=== PATIENT | male | born 2000 | race African-American/Black ===

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

== ENCOUNTER → 2022-05-26 | Outpatient (CLI) | payer OTHER ==
[2022-05-26 16:49] LABS: ALT 39 U/L (10-49); AST 27 U/L (14-35); African American GFR (CKD) 154.6 (60.0-200.0); Albumin 4.6 g/dL (3.8-4.9); Albumin/Globulin Ratio 1.67 (1.60-3.17); Alkaline Phosphatase 67 U/L (41-126); BUN/Creat Ratio 15.44 Ratio (12.00-20.00); Blood Urea Nitrogen 11.5 mg/dL (9.0-27.0); Calcium 9.7 mg/dL (8.7-10.3); Carbon Dioxide 23.9 mmol/L (20.0-27.5); Chloride 101 mmol/L (96-109); Chol/HDL Ratio 4.11 Ratio; Globulin 2.8 g/dL (1.6-3.3); Glucose 86 mg/dL (70-110); LDL Cholesterol,Calculated 134.3 mg/dL (0.0-131.0); Non-African American GFR(CKD) 133.4 (60.0-200.0); Potassium 4.2 mmol/L (3.5-5.5); Sodium 138 mmol/L (135-145); Total Protein 7.4 g/dL (6.2-8.2)
[2022-05-26 16:50] LABS: Basophils # (A) 0.04 X 10*3/uL (0.00-0.10); Basophils % (A) 0.6 %; Eosinophils # (A) 0.23 X 10*3/uL (0.04-0.35); Eosinophils % (A) 3.3 %; HCT 43.9 % (39.6-50.0); HGB 14.7 g/dL (13.0-17.0); Immature Grans, Automated 0.3 %; Lymphocytes # (A) 2.25 X 10*3/uL (0.90-5.00); Lymphocytes % (A) 32.5 %; MCH 28.8 pg (27.0-32.0); MCHC 33.5 g/dL (32.0-37.0); MCV 86.1 fL (80.0-97.0); Monocytes # (A) 0.52 X 10*3/uL (0.20-1.00); Monocytes % (A) 7.5 %; NRBC Per 100 WBC 0 /100 WBCS (0.0-0.0); Neutrophils # (A) 3.87 X 10*3/uL (1.80-7.70); Neutrophils % (A) 55.8 %; Platelet Count 269 X 10*3/uL (140-440); WBC 6.93 X 10*3/uL (4.50-10.00)
== END | disposition home or self-care (01) ==
LOC: LABWHC1 11:06
PROVIDERS: ATTEND Registered Nurse
DX: Z79.899 Other long term (current) drug therapy (principal)
CPT/HCPCS: 36415; 80053; 80061; 83036; 84439; 84443; 85025

== ENCOUNTER 2023-08-09 10:16 | Emergency (ER) | payer OTHER ==
[2023-08-09 10:34] VITALS: RESP 18; TEMP 98
--- NOTE | 2023-08-09 12:08 | ED ---
Psych HPI - General Chief Complaint: Psychiatric Symptoms Stated Complaint: Mental Health Time Seen by Provider: 08/09/23 10:19 Source: patient, RN notes reviewed Mode of arrival: ambulatory Limitations: no limitations - History of Present Illness Initial Comments: 22-year-old male presents emergency department with family for psychiatric evaluation. Patient got upset and ran away down the road. Patient denies being suicidal homicidal denies any drug use no alcohol use. - Related Data Allergies Allergy/AdvReac Type Severity Reaction Status Date / Time cetirizine [From Zyrtec] Allergy Unknown Verified 08/09/23 10:22 diphenhydramine Allergy Unknown Verified 08/09/23 10:22 [From Benadryl] Penicillins Allergy Unknown Verified 08/09/23 10:22 Review of Systems ROS Statement: Those systems with pertinent positive or pertinent negative responses have been documented in the HPI. ROS Other: All systems not noted in ROS Statement are negative. 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 Absent: scleral icterus, conjunctival injection, periorbital swelling ENT exam: Present: normal exam, mucous membranes moist Neck exam: Present: normal inspection, full ROM. Absent: tenderness, meningismus, lymphadenopathy Respiratory exam: Present: normal lung sounds bilaterally. Absent: respiratory distress, wheezes, rales, rhonchi, stridor Cardiovascular Exam: Present: regular rate, normal rhythm, normal heart sounds. Absent: systolic murmur, diastolic murmur, rubs, gallop, clicks GI/Abdominal exam: Present: soft, normal bowel sounds. Absent: distended, tenderness, guarding, rebound, rigid Neurological exam: Present: alert, oriented X3 Psychiatric exam: Present: normal affect, normal mood Course Vital Signs 08/09/23 08/09/23 10:19 12:25 Temperature 98 F Pulse Rate 104 H 84 Respiratory 18 18 Rate Blood Pressure 113/81 118/64 O2 Sat by Pulse 98 98 Oximetry Medical Decision Making - Medical Decision Making Was pt. sent in by a medical professional or institution (MARIUM Pritchard, PROFESSOR OF MARKETING, urgent care, hospital, or correction...) When possible be specific @ -No Did you speak to anyone other than the patient for history (EMS, parent, family, police, friend...)? What history was obtained from this source @ -Feeling fine past medical history Did you review nursing and triage notes (agree or disagree)? Why? @ -I reviewed and agree with nursing and triage notes Were old charts reviewed (outside hosp., previous admission, EMS record, old EKG, old radiological studies, urgent care reports/EKG's, correction records)? Report findings @ -No old charts were reviewed Differential Diagnosis (chest pain, altered mental status, abdominal pain women, abdominal pain men, vaginal bleeding, weakness, fever, dyspnea, syncope, headache, dizziness, GI bleed, back pain, seizure, CVA, palpatations, mental health, musculoskeletal)? @ -Differential Mental Health Depression, anxiety, bipolar, psychosis, schizophrenia, borderline personality, situational depression, adjustment disorder, behavioral disorder, brain tumor, malingering, substance abuse, encephalopathy, medication reaction, dementia, hypothyroidism, degenerative neurologic disorder, lupus.... This is not meant to be all-inclusive listle EKG interpreted by me (3pts min.). @ -None X-rays interpreted by me (1pt min.). @ -None done CT interpreted by me (1pt min.). @ -None done U/S interpreted by me (1pt. min.). @ -None done What testing was considered but not performed or refused? (CT, X-rays, U/S, l abs)? Why? @ -None What meds were considered but not given or refused? Why? @ -None Did you discuss the management of the patient with other professionals (professionals i.e. MARIUM Pritchard, PROFESSOR OF MARKETING, lab, RT, psych nurse, clinical social work therapist, staff nuclear medicine technologist, teacher, building drafting officer, case resource manager)? Give summary @ -EPS evaluated the patient recommends patient be discharged CT plan family agrees. Was smoking cessation discussed for >3mins.? @ -No Was critical care preformed (if so, how long)? @ -No Were there social determinants of health that impacted care today? How? (Homelessness, low income, unemployed, alcoholism, drug addiction, transportation, low edu. Level, literacy, decrease access to med. care, long-term, rehab)? @ -No Was there de-escalation of care discussed even if they declined (Discuss DNR or withdrawal of care, Hospice)? DNR status @ -No What co-morbidities impacted this encounter? (DM, HTN, Smoking, COPD, CAD, Cancer, CVA, ARF, Chemo, Hep., AIDS, mental health diagnosis, sleep apnea, morbid obesity)? @ -None Was patient admitted / discharged? Hospital course, mention meds given and route, prescriptions, significant lab abnormalities, going to OR and other pertinent info. @ -Discharge patient was evaluated by EPS patient is not suicidal homicidal is safe for discharge a safety plan Undiagnosed new problem with uncertain prognosis? @ -No Drug Therapy requiring intensive monitoring for toxicity (Heparin, Nitro, Ins ulin, Cardizem)? @ -No Were any procedures done? @ -No Diagnosis/symptom? @ -Adjustment reaction Acute, or Chronic, or Acute on Chronic? @ -Acute Uncomplicated (without systemic symptoms) or Complicated (systemic symptoms)? @ -Uncomplicated Side effects of treatment? @ -No Exacerbation, Progression, or Severe Exacerbation? @ -No Poses a threat to life or bodily function? How? (Chest pain, USA, ME, pneumonia, PE, COPD, DKA, ARF, appy, cholecystitis, CVA, Diverticulitis, Homicidal, Suicidal, threat to staff... and all critical care pts) @ -No - Lab Data Lab Results 08/09/23 Range/Units 11:26 Urine Opiates Screen Not Detected (NotDetected) Ur Oxycodone Screen Not Detected (NotDetected) Urine Methadone Screen Not Detected (NotDetected) Ur Propoxyphene Screen Not Detected (NotDetected) Ur Barbiturates Screen Not Detected (NotDetected) U Tricyclic Antidepress Not Detected (NotDetected) Ur Phencyclidine Scrn Not Detected (NotDetected) Ur Amphetamines Screen Not Detected (NotDetected) U Methamphetamines Scrn Not Detected (NotDetected) U Benzodiazepines Scrn Not Detected (NotDetected) Urine Cocaine Screen Not Detected (NotDetected) U Marijuana (THC) Screen Not Detected (NotDetected) Disposition Clinical Impression: Adjustment reaction Disposition: HOME SELF-CARE Condition: Stable Additional Instructions: Please return to the Emergency Department if symptoms worsen or any other concerns. Is patient prescribed a controlled substance at d/c from ED?: No Referrals: Gallo Greco MD [Primary Care Provider] - 1-2 days Time of Disposition: 12:08
[2023-08-09 12:22] LABS: Amphetamine Screen,Urine Not Detected (NotDetected); Barbiturate Screen,Urine Not Detected (NotDetected); Benzodiazepines Screen,Urine Not Detected (NotDetected); Cocaine Screen,Urine Not Detected (NotDetected); Methadone Screen, Urine Not Detected (NotDetected); Opiate Screen,Urine Not Detected (NotDetected); Oxycodone Screen, Urine Not Detected (NotDetected); Phencyclidine Screen,Urine Not Detected (NotDetected); Tricyclic Antidepressant,Urine Not Detected (NotDetected); Urn Cannabinoid Scrn Not Detected (NotDetected)
[2023-08-09 12:45] VITALS: BP 118/64; PULSE 84
== END 2023-08-09 12:38 | disposition home or self-care (01) ==
LOC: EEVIPCON 10:16 → EC 10:16
DX: F43.20 Adjustment disorder, unspecified (principal); J45.909 Unspecified asthma, uncomplicated; Z88.0 Allergy status to penicillin; Z88.8 Allergy status to other drugs, medicaments and biological substances
CPT/HCPCS: 80306; 82075; 99285

== ENCOUNTER 2023-09-03 15:17 | Emergency (ER) | payer OTHER ==
[2023-09-03 15:30] VITALS: BP 114/85; PULSE 115; RESP 20; TEMP 97
--- NOTE | 2023-09-03 16:22 | ED ---
General Adult HPI - General Chief complaint: Psychiatric Symptoms Stated complaint: Mental Health Time Seen by Provider: 09/03/23 15:32 Source: patient, family, police, RN notes reviewed Mode of arrival: ambulatory Limitations: no limitations - History of Present Illness Initial comments: Patient is a pleasant 22-year-old male presenting to the emergency department after found wandering by the police. Mother is present. Patient was upset and when out wandering. Patient was in shorts and T-shirt. Patient states he does feel better at this time and is no longer upset. Patient is comfortable to go home with mother and be discharged. Patient has been taking his medications. Patient is acting normally. No suicidal or homicidal thoughts. - Related Data Allergies Allergy/AdvReac Type Severity Reaction Status Date / Time cetirizine [From Zyrtec] Allergy Unknown Verified 08/09/23 10:22 diphenhydramine Allergy Unknown Verified 08/09/23 10:22 [From Benadryl] Penicillins Allergy Unknown Verified 08/09/23 10:22 Review of Systems ROS Statement: Those systems with pertinent positive or pertinent negative responses have been documented in the HPI. ROS Other: All systems not noted in ROS Statement are negative. Constitutional: Denies: fever Eyes: Denies: eye pain ENT: Denies: ear pain Respiratory: Denies: cough Cardiovascular: Denies: chest pain Endocrine: Denies: fatigue Gastrointestinal: Denies: abdominal pain Genitourinary: Denies: dysuria Past Medical History Past Medical History: Asthma, Seizure Disorder Additional Past Medical History / Comment(s): cva inutero, History of Any Multi-Drug Resistant Organisms: None Reported Additional Past Surgical History / Comment(s): brain surgery to relieve seizures, L ankle Past Psychological History: ADD/ADHD Smoking Status: Never smoker Past Alcohol Use History: None Reported Past Drug Use History: None Reported General Exam Limitations: no limitations General appearance: alert, in no apparent distress Head exam: Present: normocephalic Eye exam: Present: normal appearance Neck exam: Present: normal inspection Respiratory exam: Present: normal lung sounds bilaterally Cardiovascular Exam: Present: regular rate, normal rhythm GI/Abdominal exam: Present: soft. Absent: tenderness Extremities exam: Present: normal inspection Neurological exam: Present: alert Psychiatric exam: Present: normal affect, normal mood Skin exam: Present: normal color Course Vital Signs 09/03/23 15:27 Temperature 97 F L Pulse Rate 115 H Respiratory 20 Rate Blood Pressure 114/85 O2 Sat by Pulse 99 Oximetry Medical Decision Making - Medical Decision Making Was pt. sent in by a medical professional or institution ([facility] Pritchard, FINGERNAIL TECHNICIAN, urgent care, hospital, or fci...) When possible be specific @ -Patient was brought in by police officers Did you speak to anyone other than the patient for history (EMS, parent, family, police, friend...)? What history was obtained from this source @ -Mother helps provide history including that patient was upset and wandering. Mother does not have other concerns. Did you review nursing and triage notes (agree or disagree)? Why? @ -I reviewed and agree with nursing and triage notes Were old charts reviewed (outside hosp., previous admission, EMS record, old EKG, old radiological studies, urgent care reports/EKG's, fci records)? Report findings @ -No old charts were reviewed Differential Diagnosis (chest pain, altered mental status, abdominal pain women, abdominal pain men, vaginal bleeding, weakness, fever, dyspnea, syncope, headache, dizziness, GI bleed, back pain, seizure, CVA, palpatations, mental health, musculoskeletal)? @ -Differential Mental Health Depression, anxiety, bipolar, psychosis, schizophrenia, borderline personality, situational depression, adjustment disorder, behavioral disorder, brain tumor, malingering, substance abuse, encephalopathy, medication reaction, dementia, hypothyroidism, degenerative neurologic disorder, lupus.... This is not meant to be all-inclusive list EKG interpreted by me (3pts min.). @ -As above X-rays interpreted by me (1pt min.). @ -None done CT interpreted by me (1pt min.). @ -None done U/S interpreted by me (1pt. min.). @ -None done What testing was considered but not performed or refused? (CT, X-rays, U/S, labs)? Why? @ -None What meds were considered but not given or refused? Why? @ -None Did you discuss the management of the patient with other professionals (professionals i.e. MARIUM Pritchard, FINGERNAIL TECHNICIAN, lab, RT, psych nurse, social service technician, independent driver, teacher, aviation ordnance officer, piano case maker)? Give summary @ -No Was smoking cessation discussed for >3mins.? @ -No Was critical care preformed (if so, how long)? @ -No Were there social determinants of health that impacted care today? How? (Homelessness, low income, unemployed, alcoholism, drug addiction, tr ansportation, low edu. Level, literacy, decrease access to med. care, usp, rehab)? @ -No Was there de-escalation of care discussed even if they declined (Discuss DNR or withdrawal of care, Hospice)? DNR status @ -No What co-morbidities impacted this encounter? (DM, HTN, Smoking, COPD, CAD, Cancer, CVA, ARF, Chemo, Hep., AIDS, mental health diagnosis, sleep apnea, morbid obesity)? @ -None Was patient admitted / discharged? Hospital course, mention meds given and route, prescriptions, significant lab abnormalities, going to OR and other pertinent info. @ -Mother and patient are both comfortable with discharge home. No further concerns. Patient does not have any suicidal thoughts and is able to take care of himself with mother's assistance. Undiagnosed new problem with uncertain prognosis? @ -No Drug Therapy requiring intensive monitoring for toxicity (Heparin, Nitro, Insulin, Cardizem)? @ -No Were any procedures done? @ -No Diagnosis/symptom? @ -Adjustment disorder Acute, or Chronic, or Acute on Chronic? @ -Acute on chronic Uncomplicated (without systemic symptoms) or Complicated (systemic symptoms)? @ -default Side effects of treatment? @ -No Exacerbation, Progression, or Severe Exacerbation? @ -No Poses a threat to life or bodily function? How? (Chest pain, [place], [place], pneumonia, PE, COPD, DKA, ARF, appy, cholecystitis, CVA, Diverticulitis, Homicidal, Suicidal, threat to staff... and all critical care pts) @ -No Disposition Clinical Impression: Adjustment reaction Disposition: HOME SELF-CARE Condition: Stable Instructions (If sedation given, give patient instructions): Mood Disorders (ED) Additional Instructions: Discharge to mother. Please follow-up with your primary care physician and psychiatrist in the next couple days for recheck. Return for thoughts of self- harm, worsening symptoms or other concerns. Is patient prescribed a controlled substance at d/c from ED?: No Referrals: Gallo Greco MD [Primary Care Provider] - 1-2 days Time of Disposition: 16:20
== END 2023-09-03 17:01 | disposition home or self-care (01) ==
LOC: EC 15:17
DX: F43.20 Adjustment disorder, unspecified (principal); J45.909 Unspecified asthma, uncomplicated; Z88.0 Allergy status to penicillin; Z88.8 Allergy status to other drugs, medicaments and biological substances; Z86.73 Personal history of transient ischemic attack (TIA), and cerebral infarction without residual deficits
CPT/HCPCS: 82075; 99284

== ENCOUNTER 2023-12-24 18:23 | Emergency (ER) | payer OTHER ==
--- NOTE | 2023-12-24 18:31 | ED ---
General Adult HPI <Omer Laws - Last Filed: 12/24/23 18:32> <Kurtis Bynum - Last Filed: 12/24/23 19:30> - General Stated complaint: Mental Health Time Seen by Provider: 12/24/23 18:31 - History of Present Illness Initial comments: 23-year-old male presenting to the ED with complaints of mental health problem. Per mother, patient has not been taking his medications lately. Due to this has been acting more abnormal. States police found him walking up and down the road. Brought the patient. Further evaluation. (Omer Laws) 23-year-old male presenting for evaluation. Patient and mother state that he has not been wanting to take his medication due to their current situation where they are living. They are currently homeless. Patient has no physical or mental complaints at the time my evaluation. He agrees to take his medication and the mother and patient's state they can stay with the patient's grandmother who is very close to the hospital. No physical complaints, no suicidal or homic idal ideation. Patient is just stressed because they are homeless. (Kurtis Bynum) - Related Data Home Medications Medication Instructions Recorded Confirmed Chlorthalidone [Hygroton] 25 mg PO DAILY 09/03/23 09/03/23 Lisdexamfetamine Dimesylate 10 mg PO QAM 09/03/23 09/03/23 [Vyvanse] Allergies Allergy/AdvReac Type Severity Reaction Status Date / Time cetirizine [From Zyrtec] Allergy Unknown Verified 12/24/23 19:07 diphenhydramine Allergy Unknown Verified 12/24/23 19:07 [From Benadryl] Penicillins Allergy Unknown Verified 12/24/23 19:07 Review of Systems ROS Other: All systems not noted in ROS Statement are negative. <Omer Laws - Last Filed: 12/24/23 18:32> ROS Other: All systems not noted in ROS Statement are negative. <Kurtis Bynum - Last Filed: 12/24/23 19:30> ROS Statement: Those systems with pertinent positive or pertinent negative responses have been documented in the HPI. Past Medical History Past Medical History: Asthma, Seizure Disorder Additional Past Medical History / Comment(s): cva inutero, History of Any Multi-Drug Resistant Organisms: None Reported Additional Past Surgical History / Comment(s): brain surgery to relieve seizures, L ankle Past Psychological History: ADD/ADHD Smoking Status: Never smoker Past Alcohol Use History: None Reported Past Drug Use History: None Reported <Omer Laws - Last Filed: 12/24/23 18:32> General Exam <Omer Laws - Last Filed: 12/24/23 18:32> General appearance: alert, in no apparent distress Head exam: Present: atraumatic, normocephalic Eye exam: Present: normal appearance, PERRL ENT exam: Present: normal exam Neck exam: Present: normal inspection. Absent: tenderness Respiratory exam: Present: normal lung sounds bilaterally. Absent: respiratory distress, wheezes Cardiovascular Exam: Present: regular rate, normal rhythm GI/Abdominal exam: Present: soft. Absent: distended, tenderness Extremities exam: Present: normal inspection Neurological exam: Present: alert, oriented X3 Psychiatric exam: Absent: homicidal ideation, suicidal ideation Skin exam: Present: warm, dry <Kurtis Bynum - Last Filed: 12/24/23 19:30> - General Exam Comments Initial Comments: Visual Physical Exam Vital signs reviewed General: Well-appearing, nontoxic, no acute distress. Head: Normocephalic, atraumatic Eyes: PERRLA, EOMI ENT: Airway patent Chest: Nonlabored breathing Skin: No visual rash, normal skin tone Musculoskeletal: No gross abnormalities (Oemr Laws) Course Vital Signs 12/24/23 18:58 Temperature 98 F Pulse Rate 91 Respiratory 20 Rate Blood Pressure 125/87 O2 Sat by Pulse 100 Oximetry Medical Decision Making <Omer Laws - Last Filed: 12/24/23 18:32> <Kurtis Bynum - Last Filed: 12/24/23 19:30> - Medical Decision Making Quicknote portion performed. Signed Omer Laws PA-C (Omer Laws) Was pt. sent in by a medical professional or institution ([facility] Pritchard, HUMAN RESOURCES DESIGNATE, urgent care, hospital, or senior living...) When possible be specific @ -No Did you speak to anyone other than the patient for history (EMS, parent, family, police, friend...)? What history was obtained from this source @ -No Did you review nursing and triage notes (agree or disagree)? Why? @ -I reviewed and agree with nursing and triage notes Were old charts reviewed (outside hosp., previous admission, EMS record, old EKG, old radiological studies, urgent care reports/EKG's, senior living records)? Report findings @ -No old charts were reviewed Differential Mental Health Depression, anxiety, bipolar, psychosis, schizophrenia, borderline personality, situational depression, adjustment disorder, behavioral disorder, brain tumor, malingering, substance abuse, encephalopathy, medication reaction, dementia, hypothyroidism, degenerative neurologic disorder, lupus.... This is not meant to be all-inclusive list EKG interpreted by me (3pts min.). @ -As above X-rays interpreted by me (1pt min.). @ -None done CT interpreted by me (1pt min.). @ -None done U/S interpreted by me (1pt. min.). @ -None done What testing was considered but not performed or refused? (CT, X-rays, U/S, labs)? Why? @ -None What meds were considered but not given or refused? Why? @ -None Did you discuss the management of the patient with other professionals (professionals i.e. , PA, HUMAN RESOURCES DESIGNATE, lab, RT, psych nurse, hospice social worker, data capture specialist, teacher, contracts officer, bilingual patient support caseworker)? Give summary @ -No Was smoking cessation discussed for >3mins.? @ -No Was critical care preformed (if so, how long)? @ -No Were there social determinants of health that impacted care today? How? (Homelessness, low income, unemployed, alcoholism, drug addiction, transportation, low edu. Level, literacy, decrease access to med. care, usp, rehab)? @ -No Was there de-escalation of care discussed even if they declined (Discuss DNR or withdrawal of care, Hospice)? DNR status @ -No What co-morbidities impacted this encounter? (DM, HTN, Smoking, COPD, CAD, Cancer, CVA, ARF, Chemo, Hep., AIDS, mental health diagnosis, sleep apnea, morbid obesity)? @ -None Was patient admitted / discharged? Hospital course, mention meds given and route, prescriptions, significant lab abnormalities, going to OR and other pertinent info. @ -23-year-old male with stress due to being homeless. Patient agrees to take his medication. He is not suicidal or homicidal. Mother is not concerned with the patient's behavior. She states that he left the house in an attempt to find work. She states they are homeless but can stay with her mother. No physical complaints at this time. I did I did ask multiple ways if there was any further assistance that the patient or family needed and they stated they did not need anything at this time. Undiagnosed new problem with uncertain prognosis? @ -No Drug Therapy requiring intensive monitoring for toxicity (Heparin, Nitro, Insulin, Cardizem)? @ -No Were any procedures done? @ -No Diagnosis/symptom? @ -[Situational depression Acute, or Chronic, or Acute on Chronic? @Acute Uncomplicated (without systemic symptoms) or Complicated (systemic symptoms)? @ -Default Side effects of treatment? @ -No Exacerbation, Progression, or Severe Exacerbation? @ -No Poses a threat to life or bodily function? How? (Chest pain, [place], [place], pneumonia, PE, COPD, DKA, ARF, appy, cholecystitis, CVA, Diverticulitis, Homicidal, Suicidal, threat to staff... and all critical care pts) @ -No (Kurtis Bynum) Disposition <Omer Laws - Last Filed: 12/24/23 18:32> Is patient prescribed a controlled substance at d/c from ED?: No Time of Disposition: 19:26 <Kurtis Bynum - Last Filed: 12/24/23 19:30> Clinical Impression: Depression, Stress at home Disposition: HOME SELF-CARE Condition: Fair Instructions (If sedation given, give patient instructions): Stress (ED) Additional Instructions: Please take medication as prescribed. Please follow-up with your primary care provider. Please return to the emergency department with any new or worsening concerns. Referrals: Gallo Greco MD [Primary Care Provider] - 1-2 days
[2023-12-24 19:27] VITALS: BP 125/87; PULSE 91; RESP 20; TEMP 98
== END 2023-12-24 19:33 | disposition home or self-care (01) ==
LOC: EC 18:23
DX: F32.A Depression, unspecified (principal); F43.9 Reaction to severe stress, unspecified; Z88.0 Allergy status to penicillin; Z88.8 Allergy status to other drugs, medicaments and biological substances
CPT/HCPCS: 99284

== ENCOUNTER 2024-03-11 23:11 | Emergency (ER) | payer MEDICARE, OTHER ==
[2024-03-11 23:21] VITALS: RESP 18; TEMP 98.7
--- NOTE | 2024-03-12 00:54 | ED ---
Eye Problem HPI - General Chief complaint: Eye Problems Stated complaint: eye pain Time Seen by Provider: 03/11/24 23:41 Source: patient, family Mode of arrival: ambulatory - History of Present Illness Initial comments: This patient is a 23-year-old man who is brought to have evaluation for bilateral eye burning pain. It is reported that this developed over the course the evening and into tonight and has been getting progressively worse. The patient was exposed to ultraviolet light after the patient's mother had purchased some ultraviolet sterilizing lamps. The patient denies having any injury to the eyes. He denies foreign body. Patient's mother states that his vision is not normal at baseline. His vision is probably less than 20/40 at baseline. Patient did not note any change in vision. MD chief complaint: eye pain, eye redness -: hour(s) Onset Description: gradual Location: both eyes Place: home If Injury: UV exposure Eye Symptoms: burning, redness, pain Severity: severe If Pain, Quality: burning Consistency: constant Associated Symptoms: none Treatments Prior to Arrival: none - Related Data Patient Tetanus UTD: Yes Home Medications Medication Instructions Recorded Confirmed Chlorthalidone [Hygroton] 25 mg PO DAILY 09/03/23 09/03/23 Lisdexamfetamine Dimesylate 10 mg PO QAM 09/03/23 09/03/23 [Vyvanse] Allergies Allergy/AdvReac Type Severity Reaction Status Date / Time cetirizine [From Zyrtec] Allergy Unknown Verified 03/11/24 23:22 diphenhydramine Allergy Unknown Verified 03/11/24 23:22 [From Benadryl] Penicillins Allergy Unknown Verified 03/11/24 23:22 Review of Systems ROS Statement: Those systems with pertinent positive or pertinent negative responses have been documented in the HPI. ROS Other: All systems not noted in ROS Statement are negative. Constitutional: Denies: fever Eyes: Reports: as per HPI, eye pain ENT: Denies: throat pain, congestion Respiratory: Denies: cough, dyspnea Gastrointestinal: Denies: nausea, vomiting Neurological: Denies: headache Past Medical History Past Medical History: Asthma, Seizure Disorder Additional Past Medical History / Comment(s): cva inutero, History of Any Multi-Drug Resistant Organisms: None Reported Additional Past Surgical History / Comment(s): brain surgery to relieve seizures, L ankle Past Psychological History: ADD/ADHD Smoking Status: Never smoker Past Alcohol Use History: None Reported Past Drug Use History: None Reported General Exam General appearance: alert, in distress Head exam: Present: atraumatic, normocephalic Eye exam: Present: PERRL, EOMI, conjunctival injection, other (blepharospasm). Absent: scleral icterus, periorbital swelling, periorbital tenderness ENT exam: Present: normal oropharynx Neck exam: Present: normal inspection, full ROM. Absent: tenderness, meningismus Respiratory exam: Present: normal lung sounds bilaterally. Absent: respiratory distress, wheezes, rales, rhonchi, stridor Cardiovascular Exam: Present: regular rate, normal rhythm Neurological exam: Present: alert Skin exam: Present: warm, dry, intact, normal color. Absent: rash Course Vital Signs 03/11/24 23:18 Temperature 98.7 F Pulse Rate 95 Respiratory 18 Rate Blood Pressure 122/87 O2 Sat by Pulse 98 Oximetry The patient did have bilateral conjunctival injection. The patient would not tolerate slit-lamp exam. The corneas did not appear to have any clouding, they are clear. I was able to get the patient to open eyes after instilling tetracaine 1 drop bilaterally. At that point the patient states that his vision is normal. I did then apply fluorescein stain I do not identify any corneal ulceration but there is diffuse punctate uptake bilaterally. I did measure the pressure using the i[employer] device it was 18 and the right eye, 16 on the left. Discussed appropriate further care and follow-up with patient and mother. Disposition Clinical Impression: Photokeratitis Disposition: HOME SELF-CARE Condition: Good Instructions (If sedation given, give patient instructions): Corneal Abrasion (ED) Is patient prescribed a controlled substance at d/c from ED?: No Referrals: Gallo Greco MD [Primary Care Provider] - 1-2 days Sherice Kumar MD [STAFF PHYSICIAN] - 1-2 days
[2024-03-12] MEDS: FLUORESCEIN STRIPS 1 MG STRIP BOTH EYES ONE (01:22)
[2024-03-12] MEDS: TETRACAINE 0.5% OPHTH (PF) DROPS 4 ML BTL BOTH EYES STA (01:22)
[2024-03-12] MEDS: POLYMYXIN B-TRIMETHOPRIM SULF (10,000-1) OPHTH DROPS 10 ML BTL BOTH EYES STA (01:22)
[2024-03-12 01:32] VITALS: BP 118/82; PULSE 80
== END 2024-03-12 01:32 | disposition home or self-care (01) ==
LOC: EC 23:11
DX: H16.133 Photokeratitis, bilateral (principal); Z88.0 Allergy status to penicillin; Z88.8 Allergy status to other drugs, medicaments and biological substances
CPT/HCPCS: 99283

== ENCOUNTER 2024-04-13 08:48 | Emergency (ER) | payer MEDICARE, OTHER | END 2024-04-13 13:10 | disposition home or self-care (01) | LOC: EC 08:48 | DX: Z00.8 Encounter for other general examination (principal) | CPT/HCPCS: 12011; 93005; 96372; 99283; 99284 ==

== ENCOUNTER → 2025-03-04 | Outpatient (CLI) | payer MEDICARE, OTHER ==
[2025-03-04 15:30] LABS: Basophils # (A) 0.03 X 10*3/uL (0.00-0.10); Basophils % (A) 0.5 %; Eosinophils # (A) 0.15 X 10*3/uL (0.04-0.35); Eosinophils % (A) 2.7 %; HCT 41.5 % (39.6-50.0); HGB 13.5 g/dL (13.0-17.0); Immature Grans, Automated 0.20 %; Lymphocytes # (A) 1.70 X 10*3/uL (0.90-5.00); Lymphocytes % (A) 31.0 %; MCH 28.1 pg (27.0-32.0); MCHC 32.5 g/dL (32.0-37.0); MCV 86.5 FL (80.0-97.0); Monocytes # (A) 0.45 X 10*3/uL (0.20-1.00); Monocytes % (A) 8.2 %; NRBC Per 100 WBC 0 X 10*3/uL (0.00-0.01); Neutrophils # (A) 3.15 X 10*3/uL (1.80-7.70); Neutrophils % (A) 57.4 %; Platelet Count 290 X 10*3/uL (140-440); RBC 4.80 X 10*6/uL (4.40-5.60); RDW 12.8 % (11.5-14.5); WBC 5.49 X 10*3/uL (4.50-10.00)
[2025-03-04 15:40] LABS: ALT 33 U/L (10-49); AST 28 U/L (14-35); Albumin 4.6 g/dL (3.8-4.9); Albumin/Globulin Ratio 1.77 Ratio (1.60-3.17); Alkaline Phosphatase 65 U/L (41-126); Anion Gap 11.60 mmol/L (4.00-12.00); BUN/Creat Ratio 11.71 Ratio (12.00-20.00); Blood Urea Nitrogen 8.2 mg/dL (9.0-27.0); Calcium 9.3 mg/dL (8.7-10.3); Carbon Dioxide 25.4 mmol/L (21.6-31.8); Chloride 100 mmol/L (96-109); Cholesterol 188.00 mg/dL (0.00-200.00); Globulin 2.6 g/dL (1.6-3.3); Glucose 90 mg/dL (70-110); HDL Cholesterol 41.80 mg/dL (40.00-60.00); LDL Cholesterol,Calculated 132.7 mg/dL (0.0-131.0); Potassium 3.9 mmol/L (3.5-5.5); Sodium 137 mmol/L (135-145); Total Protein 7.2 g/dL (6.2-8.2); Triglycerides 67.30 mg/dL (0.00-149.00); VLDL Calculation 13.46 mg/dL (5.00-40.00)
== END | disposition home or self-care (01) ==
LOC: EEVIPCON 08:56 → LABWHC1 08:56
PROVIDERS: ATTEND Family Medicine
DX: I10 Essential (primary) hypertension (principal)
CPT/HCPCS: 36415; 80053; 80061; 83036; 84443; 85025